=== PATIENT | male | born 1945 | race Caucasian/White ===

== ENCOUNTER 2017-10-13 12:20 | Emergency (ER) | payer OTHER ==
[2017-10-13] MEDS ORDERED: LIDOCAINE 1% W/EPI 1:100,000 MDV 50 ML VIAL ONE (12:54)
[2017-10-13] MEDS ORDERED: CEFAZOLIN SODIUM 1 GM/VIAL ONE (13:54)
--- NOTE | 2017-10-13 14:10 | EDPHYS ---
Physician Documentation [facility] Name: Griffin Mcghee Age: 72 yrs Sex: Male : 1945 Arrival Date: 10/13/2017 Time: 12:23 Bed 25 Private MD: Juan Benjamin E ED Physician Simone Jensen HPI: 10/13 12:40 This 72 yrs old Male presents to ER via Ambulatory with complaints of cp Puncture Wound To Arm. 12:40 The patient or guardian complains of penetrating injury, wooden thorn from palm tree. cp The complaints affect the left lateral proximal forearm. Context: The problem was sustained at home. Onset: The symptoms/episode began/occurred today. Treatment prior to arrival includes: attempt to remove. Associated signs and symptoms: Pertinent negatives: decreased range of motion, fever, numbness. Historical: - Allergies: 12:29 No Known Allergies; aj - Home Meds: 12:29 Warfarin Oral [Active]; Risperdal Oral [Active]; aj - PMHx: 12:29 CVA; Hypertension; aj - Immunization history:: Last tetanus immunization: unknown. - Social history:: Smoking status: Patient/guardian denies using tobacco. ROS: 12:45 Constitutional: Negative for body aches, chills, fever, poor PO intake. cp 12:45 Eyes: Negative for injury, pain, redness, and discharge. cp 12:45 ENT: Negative for drainage from ear(s), ear pain, sore throat, difficulty swallowing, difficulty handling secretions. 12:45 Cardiovascular: Negative for chest pain. 12:45 Respiratory: Negative for cough, shortness of breath. 12:45 Abdomen/GI: Negative for abdominal pain, vomiting, diarrhea, constipation. 12:45 Skin: Positive for puncture, of the lateral aspect left proximal forearm, foreign body sensation. 12:45 All other systems are negative. Exam: 12:52 Constitutional: The patient appears in no acute distress, alert, awake, non-toxic, well cp developed, well nourished. 12:52 Head/Face: Normocephalic, atraumatic. cp 12:52 Eyes: Periorbital structures: appear normal, Conjunctiva: normal, no exudate, no injection, Lids and lashes: appear normal, bilaterally. 12:52 ENT: External ear(s): are unremarkable, Nose: is normal, Mouth: is normal. 12:52 Chest/axilla: Inspection: normal. 12:52 Cardiovascular: Rate: tachycardic. 12:52 Respiratory: the patient does not display signs of respiratory distress, Respirations: normal, no use of accessory muscles, no retractions, no splinting, no tachypnea. 12:52 Abdomen/GI: Exam negative for discomfort, distension, guarding, Inspection: abdomen appears normal. 12:52 Skin: injury, puncture(s), that are deep, of the lateral aspect left proximal forearm, noted palpable foreign body . Vital Signs: 12:29 BP 156 / 94; Pulse 104; Resp 18; Temp 97.0; Pulse Ox 98% on R/A; Weight 83.91 kg; aj Height 6 ft. 1 in. (185.42 cm); 12:29 Body Mass Index 24.41 (83.91 kg, 185.42 cm) Procedures: 14:00 Foreign Body Removal: sliver of wood, from the left lateral proximal forearm, by using cp a hemostat, Dressinx4s were used to dress the wound, The patient tolerated the removal well, wound irrigated with normal saline and betadine. MDM: 12:33 Patient medically screened. cp 13:00 Differential diagnosis: cellulitis, abscess, retained foreign body. 14:05 Data reviewed: vital signs, nurses notes, and as a result, I will discharge patient. 14:05 Counseling: I had a detailed discussion with the patient and/or guardian regarding: the cp historical points, exam findings, and any diagnostic results supporting the discharge/admit diagnosis, to return to the emergency department if symptoms worsen or persist or if there are any questions or concerns that arise at home. Special discussion: I discussed in detail with the patient the higher chance of wound infection based on his presenting history. ED course: VSS. Patient reports tetanus vaccination UTD. Wound cleaned, irrigated and dressed after large wooden sliver removed. Will discharge to home for continued monitoring. 10/13 12:43 Order name: Dressing - Wound; Complete Time: 14:02 cp 10/13 12:43 Order name: Gloves, Sterile; Complete Time: 13:02 cp 10/13 12:43 Order name: Setup Suture Tray; Complete Time: 13:02 cp 10/13 13:44 Order name: Wound dressing; Complete Time: 14:02 cp Administered Medications: 13:13 Drug: Lidocaine-Epinephrine -1%: (1:100,000) 5 ml {Note: by AMANDA Hammond.} Volume: 20 aj1 ml; Route: Infiltration; 14:02 Drug: Ancef 1 grams Route: IM; Site: left gluteus; aj1 14:16 Follow up: Response: No adverse reaction aa5 Disposition: 10/13/17 14:09 Discharged to Home. Impression: Puncture wound with foreign body of left forearm. - Condition is Stable. - Discharge Instructions: Puncture Wound. - Prescriptions for Keflex 500 mg Oral Capsule - take 1 capsule by ORAL route every 6 hours for 10 days; 40 capsule. - Medication Reconciliation Form, Thank You Letter, Antibiotic Education, Prescription Opioid Use form. - Follow up: Private Physician; When: 48 Hours; Reason: Wound Recheck. - Problem is new. - Symptoms have improved. Addendum: 10/15/2017 13:59 Co-signature as Attending Physician, Simone Jensen MD. g s Signatures: Liset Van RN RN aj1 Gia Sierra RN RN aj Wendy Carmen RN RN aa5 Jacob Cano PA PA cp Starr, Gregory, MD MD gs Corrections: (The following items were deleted from the chart) 10/13 14:16 14:09 10/13/2017 14:09 Discharged to Home. Impression: Puncture wound with foreign body aa5 of left forearm. Condition is Stable. Forms are Medication Reconciliation Form, Thank You Letter, Antibiotic Education, Prescription Opioid Use. Follow up: Private Physician; When: 48 Hours; Reason: Wound Recheck. Problem is new. Symptoms have improved. cp
--- NOTE | 2017-10-13 14:10 | ER ---
Nurse's Notes [facility] Name: Griffin Mcghee Age: 72 yrs Sex: Male : 1945 Arrival Date: 10/13/2017 Time: 12:23 Bed 25 Private MD: Juan Benjamin E Diagnosis: Puncture wound with foreign body of left forearm Presentation: 10/13 12:28 Presenting complaint: Patient states: Punctured by palm tree thorn on left forearm aj today just [employer]. Patient reports that a piece of the thorn broke off in his arm and remains there. Transition of care: patient was not received from another setting of care. Onset of symptoms was October 13, 2017. Risk Assessment: Do you want to hurt yourself or someone else? Patient reports no desire to harm self or others. Care prior to arrival: None. 12:28 Method Of Arrival: Ambulatory aj 12:28 Acuity: VICTORINO 4 aj Triage Assessment: 12:29 General: Appears in no apparent distress. comfortable, Behavior is calm, cooperative, aj appropriate for age. Pain: Complains of pain in palmar aspect of left forearm. Neuro: Level of Consciousness is awake, alert, obeys commands, Oriented to person, place, time, situation, Appropriate for age. Respiratory: Airway is patent Respiratory effort is even, unlabored, Respiratory pattern is regular, symmetrical. Derm: Skin is intact, is healthy with good turgor, Skin is pink, warm \T\ dry. normal. Injury Description: Foreign body is located palmar aspect of left forearm. Historical: - Allergies: 12:29 No Known Allergies; aj - Home Meds: 12:29 Warfarin Oral [Active]; Risperdal Oral [Active]; aj - PMHx: 12:29 CVA; Hypertension; aj - Immunization history:: Last tetanus immunization: unknown. - Social history:: Smoking status: Patient/guardian denies using tobacco. Screenin:47 Abuse screen: Denies threats or abuse. Denies injuries from another. Nutritional aj1 screening: No deficits noted. Tuberculosis screening: No symptoms or risk factors identified. Assessment: 12:47 General: Appears in no apparent distress. comfortable, Behavior is calm, cooperative, aj1 appropriate for age. Pain: Denies pain. Neuro: Level of Consciousness is awake, alert, obeys commands, Oriented to person, place, time, situation, Speech is normal, Facial symmetry appears normal. Cardiovascular: Patient's skin is warm and dry. Respiratory: Airway is patent Respiratory effort is even, unlabored, Respiratory pattern is regular, symmetrical. GI: No signs and/or symptoms were reported involving the gastrointestinal system. : No signs and/or symptoms were reported regarding the genitourinary system. EENT: No signs and/or symptoms were reported regarding the EENT system. Derm: Skin is pink, warm \T\ dry. normal. Musculoskeletal: No signs and/or symptoms reported regarding the musculoskeletal system. Circulation, motion, and sensation intact. Injury Description: Foreign body is located palmar aspect of left forearm is a splinter. 14:16 Reassessment: Patient is alert, oriented x 3, equal unlabored respirations, skin aa5 warm/dry/pink. Vital Signs: 12:29 BP 156 / 94; Pulse 104; Resp 18; Temp 97.0; Pulse Ox 98% on R/A; Weight 83.91 kg; aj Height 6 ft. 1 in. (185.42 cm); 12:29 Body Mass Index 24.41 (83.91 kg, 185.42 cm) aj ED Course: 12:23 Patient arrived in ED. sb2 12:24 Juan Benjamin MD is Private Physician. sb2 12:29 Triage completed. aj 12:29 Arm band placed on right wrist. Patient placed in an exam room. aj 12:33 Jacob Cano PA is PHCP. cp 12:33 Simone Jensen MD is Attending Physician. cp 12:45 Liset Van, MIC is Primary Nurse. aj1 12:47 Patient has correct armband on for positive identification. Bed in low position. Call aj1 light in reach. Side rails up X 1. 12:47 No provider procedures requiring assistance completed. aj1 14:16 Patient did not have IV access during this emergency room visit. aa5 Administered Medications: 13:13 Drug: Lidocaine-Epinephrine -1%: (1:100,000) 5 ml {Note: by AMANDA Hammond.} Volume: 20 aj1 ml; Route: Infiltration; 14:02 Drug: Ancef 1 grams Route: IM; Site: left gluteus; aj1 14:16 Follow up: Response: No adverse reaction aa5 Outcome: 14:09 Discharge ordered by . cp 14:16 Patient left the ED. aa5 14:16 Discharged to home ambulatory. aa5 14:16 Condition: stable 14:16 Discharge instructions given to patient, Instructed on discharge instructions, follow up and referral plans. medication usage, Demonstrated understanding of instructions, follow-up care, medications, Prescriptions given X 1. Signatures: Liset Van RN RN aj1 Gia Sierra RN RN aj Wendy Carmen RN RN aa5 Jacob Cano, AMANDA PA Lennie Pope sb2
== END 2017-10-13 14:16 | disposition home or self-care (01) ==
LOC: ER 12:20
DX: S51.842A Puncture wound with foreign body of left forearm, initial encounter (principal); I10 Essential (primary) hypertension; W26.8XXA Contact with other sharp object(s), not elsewhere classified, initial encounter; W45.8XXA Other foreign body or object entering through skin, initial encounter; Y93.9 Activity, unspecified; Y92.009 Unspecified place in unspecified non-institutional (private) residence as the place of occurrence of the external cause; Z79.01 Long term (current) use of anticoagulants; Z86.73 Personal history of transient ischemic attack (TIA), and cerebral infarction without residual deficits
CPT/HCPCS: 96372; 99283; J0690

== ENCOUNTER 2018-12-20 13:53 | Emergency (ER) | payer OTHER ==
--- OUTSIDE RECORDS SUMMARY | 2018-12-20 13:56 | XMS REPORT | Continuity of Care Document ---
:1945 Author Organization [facility] Care Team Providers Name Role Phone [facility] Unavailable Unavailable Problems No Data Provided for This Section Medications No Data Provided for This Section Allergies, Adverse Reactions, Alerts Substance Category Reaction Severity Reaction Status Date Comments Source type Reported codeine drug Allergy Surgical allergy [facility]ty [facility] Immunizations No Data Provided for This Section Results No Data Provided for This Section Pathology Reports No Data Provided for This Section Diagnostic Reports No Data Provided for This Section Consultation Notes No Data Provided for This Section Discharge Summaries No Data Provided for This Section History and Physicals No Data Provided for This Section Vital Signs No Data Provided for This Section Encounters Location Location Encounter Encounter Reason Attending ADM DC Status Source Details Type Number For Provider Date Date Visit [facility] Outpatient [id number] Jeremy 06/15 06/15 Active Surgical [facility] /2016 [facility] Outpatient [id number] [facility] 07/01 Active Surgical [facility] Procedures Procedure Code Date Perfomer Comments Source Magnetic 13710 06/15/2016 Surgical resonance (eg, Specialty proton) imaging, [facility] of any joint [facility] lower extremity; without contrast material Assessment and Plan No Data Provided for This Section Plan of Care No Data Provided for This Section Social History No Data Provided for This Section Family History No Data Provided for This Section Advance Directives No Data Provided for This Section Functional Status No Data Provided for This Section
--- OUTSIDE RECORDS SUMMARY | 2018-12-20 13:56 | XMS REPORT | CCD ---
:1945 Author Organization [facility] Care Team Providers Name Role Phone Jeremy Hanson Consulting Provider [phone] Allergies, Adverse Reactions, Alerts Substance Reaction Status codeine Active
--- OUTSIDE RECORDS SUMMARY | 2018-12-20 13:56 | XMS REPORT | CCD ---
:1945 Author Organization [facility] Care Team Providers Name Role Phone Jeremy Hanson Consulting Provider [phone] Results Radiology Reports Exam Date Time Procedure Performing Provider Status 06/15/2016 15:27:17 MRI Knee w/o Contrast Right Fiorella Lozano; Auth ( Verified) [id number] Notes:(MRI Knee w/o Contrast Right [id number]) Reason For Exam: RT KNEE PAINFINAL REPORTEXAM DESCRIPTION: MRI Knee w/o Contrast Right CLINICAL HISTORY: 71 y/o M, RT KNEE PAIN COMPARISON: None TECHNIQUE: Multiplanar, multi sequence MRI of the right knee was performed without contrast. FINDINGS: There is no MR evidence of fracture or dislocation. 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 Moderate joint space narrowing is seen in the lateral patellofemoral compartment with mild lateral patellar tilt moderate edema seen in the superior, lateral aspect of Hoffa's fat pad. The tibial tubercle - trochlear groove distance is at the upper limits of normal measuring 1.8 cm. Mild osteophyte formation is seen in the medialtibiofemoral and patellofemoral compartments. There is a small to moderate knee joint effusion with mild synovitis. There is a moderate Doss's cyst. 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 There is grade 3/4 chondromalacia in the posterior weight-bearing medial femoral condyle measuring 1.3 x 2.1 cm.There is background grade 2 chondral thinning in the medial tibiofemoral compartment. The lateral tibiofemoral articular cartilage is intact. The ACL and PCL are intact. The medial collateral ligament and lateral collateral ligament complex are intact. There is marked free edge blunting of the posterior body of the medial meniscus with suspected superimposed radial tearing of the residual free edge (image 22, series 6). The lateral meniscus is intact. The extensor mechanism is intact. Mild edema seen along the medial patellar retinaculum without evidence of fiber disruption suggesting sprain. The medial patellofemoral ligament is not well visualizedon this examination. The visualized musculature about the knee is unremarkable. IMPRESSION: MR findings raise the question of patellar maltracking. There is grade 3/4 chondromalacia in the patellofemoral compartment, greatest laterally. Mild edema along the medial patellar retinaculum suggests subacute grade 1 sprain. 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 Marked free edge blunting of the posterior body of the medial meniscus with suspected superimposed radial tearing of the residual free edge. Small to moderate knee joint effusion with mild synovitis. Moderate Doss's cyst Electronically signed by: Jordon Nguyễn 06/16/2016 11:26 Final Dictated by: Jordon Nguyễn MD Dictated DT/TM: 06/16/2016 11:26 am Signed by: Jordon Nguyễn MD Signed (Electronic Signature): 06/16/2016 11:26 am Transcribed by: DARIA Procedures Procedures Date Related Diagnosis Magnetic resonance (eg, proton) imaging, any 06/15/2016 00:00:00 joint of lower extremity; without contrast material
--- NOTE | 2018-12-20 15:01 | EDPHYS ---
Physician Documentation [facility] Name: Griffin Mcghee Age: 73 yrs Sex: Male : 1945 Arrival Date: 12/20/2018 Time: 13:57 Bed 15 Private MD: Juan Benjamin E ED Physician Oracio Mejias HPI: 12/20 17:41 This 73 yrs old Male presents to ER via Ambulatory with complaints of bulging kdr vein. 17:41 The patient noted apparent distended neck veins that collapse when he takes a deep kdr breath. He has not noted this before and had no other associated s/s. Onset: The symptoms/episode began/occurred at an unknown time. Severity of symptoms: At their worst the symptoms were very mild in the emergency department the symptoms are unchanged. The patient has not experienced similar symptoms in the past. The patient has not recently seen a physician. Historical: - Allergies: 14:07 No Known Allergies; ph - PMHx: 14:07 CVA; Hypertension; ph - Immunization history:: Adult Immunizations up to date. - Social history:: Smoking status: Patient/guardian denies using tobacco. - Ebola Screening: : No symptoms or risks identified at this time. ROS: 17:41 Constitutional: Negative for fever, chills, and weight loss, Eyes: Negative for injury, kdr pain, redness, and discharge, ENT: Negative for injury, pain, and discharge, Cardiovascular: Negative for chest pain, palpitations, and edema, Respiratory: Negative for shortness of breath, cough, wheezing, and pleuritic chest pain, Abdomen/GI: Negative for abdominal pain, nausea, vomiting, diarrhea, and constipation, Back: Negative for injury and pain, : Negative for injury, bleeding, discharge, and swelling, MS/Extremity: Negative for injury and deformity, Skin: Negative for injury, rash, and discoloration, Neuro: Negative for headache, weakness, numbness, tingling, and seizure activity. Psych: Negative for depression, anxiety, suicide ideation, homicidal ideation, and hallucinations, Allergy/Immunology: Negative for hives, rash, and allergies, Endocrine: Negative for neck swelling, polydipsia, polyuria, polyphagia, and marked weight changes, Hematologic/Lymphatic: Negative for swollen nodes, abnormal bleeding, and unusual bruising. 17:41 Neck: Positive for Apparent bulging of neck veins. Exam: 17:41 Constitutional: This is a well developed, well nourished patient who is awake, alert, kdr and in no acute distress. Head/Face: Normocephalic, atraumatic. Eyes: Pupils equal round and reactive to light, extra-ocular motions intact. Lids and lashes normal. Conjunctiva and sclera are non-icteric and not injected. Cornea within normal limits. Periorbital areas with no swelling, redness, or edema. Chest/axilla: Normal chest wall appearance and motion. Nontender with no deformity. No lesions are appreciated. Cardiovascular: Regular rate and rhythm with a normal S1 and S2. No gallops, murmurs, or rubs. Normal PMI, no JVD. No pulse deficits. Respiratory: Lungs have equal breath sounds bilaterally, clear to auscultation and percussion. No rales, rhonchi or wheezes noted. No increased work of breathing, no retractions or nasal flaring. Abdomen/GI: Soft, non-tender, with normal bowel sounds. No distension or tympany. No guarding or rebound. No evidence of tenderness throughout. 17:41 Neck: External neck: is normal, no abrasions, no abscess, no cellulitis, no ecchymosis, no erythema, no laceration, no mass, no rash, no swelling. Vital Signs: 14:06 BP 149 / 103; Pulse 87; Resp 18; Temp 98.0; Pulse Ox 99% on R/A; Weight 83.91 kg; ph Height 6 ft. 1 in. (185.42 cm); 14:06 Body Mass Index 24.41 (83.91 kg, 185.42 cm) ph MDM: 15:00 Patient medically screened. kdr 17:41 Data reviewed: vital signs, nurses notes. Counseling: I had a detailed discussion with kdr the patient and/or guardian regarding: the historical points, exam findings, and any diagnostic results supporting the discharge/admit diagnosis, the need for outpatient follow up. Administered Medications: No medications were administered Disposition: 12/20/18 15:00 Discharged to Home. Impression: Buldging Neck Veins. - Condition is Stable. - Blank Diagnosis Outline, Medication Reconciliation Form, Thank You Letter form. - Follow up: Juan Benjamin MD; When: 2 - 3 days; Reason: If symptoms return, Further diagnostic work-up, Recheck today's complaints, Continuance of care, Re-evaluation by your physician. - Problem is new. - Symptoms are resolved. Signatures: Gia Sierra RN RN Oracio Reynaga MD MD [facility] Liya Lobo RN RN ph Corrections: (The following items were deleted from the chart) 15:05 15:00 12/20/2018 15:00 Discharged to Home. Impression: Buldging Neck Veins. Condition aj is Stable. Forms are Medication Reconciliation Form, Thank You Letter, Antibiotic Education, Prescription Opioid Use. Follow up: Juan Benjamin; When: 2 - 3 days; Reason: If symptoms return, Further diagnostic work-up, Recheck today's complaints, Continuance of care, Re-evaluation by your physician. Problem is new. Symptoms are resolved. kdr
--- NOTE | 2018-12-20 15:01 | ER ---
Nurse's Notes [facility] Name: Griffin Mcghee Age: 73 yrs Sex: Male : 1945 Arrival Date: 12/20/2018 Time: 13:57 Bed 15 Private MD: Juan Benjamin E Diagnosis: Buldging Neck Veins Presentation: 12/20 14:05 Presenting complaint: Patient states: Noticed LEJ bulging 2 days ago, tried to go to PCP but could not be seen today, denies any other symptoms. Transition of care: patient was not received from another setting of care. Onset of symptoms was December 20, 2018. Risk Assessment: Do you want to hurt yourself or someone else? Patient reports no desire to harm self or others. Initial Sepsis Screen: Does the patient meet any 2 criteria? No. Patient's initial sepsis screen is negative. Does the patient have a suspected source of infection? No. Patient's initial sepsis screen is negative. Care prior to arrival: None. 14:05 Method Of Arrival: Ambulatory 14:05 Acuity: VICTORINO 3 Historical: - Allergies: 14:07 No Known Allergies; ph - PMHx: 14:07 CVA; Hypertension; ph - Immunization history:: Adult Immunizations up to date. - Social history:: Smoking status: Patient/guardian denies using tobacco. - Ebola Screening: : No symptoms or risks identified at this time. Screenin:42 Abuse screen: Denies threats or abuse. Denies injuries from another. Nutritional aj screening: No deficits noted. Tuberculosis screening: No symptoms or risk factors identified. Fall Risk None identified. Assessment: 14:42 General: Appears in no apparent distress. comfortable, Behavior is calm, cooperative, aj appropriate for age. Pain: Denies pain. Neuro: Level of Consciousness is awake, alert, obeys commands, Oriented to person, place, time, situation, Appropriate for age. Cardiovascular: Capillary refill < 3 seconds in bilateral fingers JVD is present on left Patient's skin is warm and dry. Respiratory: Airway is patent Respiratory effort is even, unlabored, Respiratory pattern is regular, symmetrical. Derm: Skin is intact, is healthy with good turgor, Skin is pink, warm \T\ dry. normal. Vital Signs: 14:06 BP 149 / 103; Pulse 87; Resp 18; Temp 98.0; Pulse Ox 99% on R/A; Weight 83.91 kg; ph Height 6 ft. 1 in. (185.42 cm); 14:06 Body Mass Index 24.41 (83.91 kg, 185.42 cm) ph ED Course: 13:57 Patient arrived in ED. mr 13:57 Juan Benjamin MD is Private Physician. mr 14:06 Triage completed. ph 14:07 Arm band placed on Patient placed in an exam room. ph 14:13 Gia Sierra RN is Primary Nurse. aj 14:24 Oracio Mejias MD is Attending Physician. kdr 14:42 Patient has correct armband on for positive identification. aj 14:59 Juan Benjamin MD is Referral Physician. kdr 15:04 No provider procedures requiring assistance completed. Patient did not have IV access aj during this emergency room visit. Administered Medications: No medications were administered Outcome: 15:00 Discharge ordered by . kdr 15:04 Discharged to home ambulatory. aj 15:04 Condition: good 15:04 Discharge instructions given to patient, Instructed on discharge instructions, follow up and referral plans. Demonstrated understanding of instructions, follow-up care. 15:05 Patient left the ED. aj Signatures: Gia Sierra, RN RN Oracio Reynaga MD MD [facility] Hayley Yi Liya Lobo RN RN
== END 2018-12-20 15:05 | disposition home or self-care (01) ==
LOC: ER 13:53
DX: I87.8 Other specified disorders of veins (principal); I10 Essential (primary) hypertension; Z86.73 Personal history of transient ischemic attack (TIA), and cerebral infarction without residual deficits
CPT/HCPCS: 99281

== ENCOUNTER 2025-02-27 22:35 | Inpatient (IN) | payer OTHER ==
[2025-02-27 22:57] LABS: Absolute Lymphocytes (CBC) 1.6 K/uL (0.7-4.9); Hematocrit 43.6 % (39.6-49.0); Hemoglobin 14.9 g/dL (13.6-17.9); MCH 30.6 pg (27.0-35.0); MCHC 34.3 g/dL (32.0-36.0); MCV 89.2 fL (80-100); MPV 7.7 fL (7.6-11.3); Nucleated RBC Absolute Count 0.0 (0-0); Nucleated Red Blood Cells % 0.1 % (0-0); RBC Red Blood Cell Count 4.88 M/uL (4.33-5.43); White Blood Count 6.40 thou/uL (4.3-10.9)
[2025-02-27 23:16] LABS: Anion Gap 7.1 mEq/L (5.0-15.0); BUN Blood Urea Nitrogen 22.0 mg/dL (7-18); Glucose Level 126.0 mg/dL (74-106); Magnesium 2.1 mg/dL (1.6-2.4); NT PRO-BNP 2794.0 pg/mL (<450); Potassium 4.1 mEq/L (3.5-5.1); Troponin High Sensitivity 19.9 pg/mL (<58.9)
[2025-02-27] MEDS ORDERED: LABETALOL 20 MG/4ML SYRINGE IV ONE (23:45)
--- NOTE | 2025-02-28 01:24 | EDPHYS ---
Physician Documentation [facility] Name: Griffin Mcghee Age: 79 yrs Sex: Male : 1945 Arrival Date: 02/27/2025 Time: 22:35 Bed 14 Private MD: ED Physician Canelo Hummel HPI: 02/28 01:53 This 79 yrs old Male presents to ER via Ambulatory with complaints of Chest Tightness, tt7 High Blood Pressure. 01:53 Patient reports that he was walking around at [facility] when he started to tt7 feel tightness in his chest, this started about an hour prior to arrival, he also felt somewhat lightheaded. He states he had similar symptoms but with associated dyspnea about 2 weeks ago and was seen in our facility and admitted to the hospital, was evaluated by accounts payable or receivable clerk Dr. Pardo and had echocardiogram performed, prior to arrival patient took 2 metoprolol's that he had at home but he states that they are about 10 years old. Past medical history of hypertension and CVA. Historical: - Allergies: 03:13 No Known Allergies; tb4 - PMHx: 02/27 22:46 CVA; Hypertension; kd3 - Immunization history:: Adult Immunizations up to date. - Infectious Disease History:: Denies. - Social history:: Smoking status: Patient denies any tobacco usage or history of. ROS: 02/28 01:54 Constitutional: negative for fever. Respiratory: negative for shortness of breath. tt7 Abdomen/GI: negative for abdominal pain, nausea, vomiting, diarrhea. MS/Extremity: negative for injury and deformity. Skin: negative for rash. Neuro: negative for focal weakness. Cardiovascular: Positive for chest pain, palpitations, Exam: 01:55 Constitutional: vital signs reviewed, well appearing. Head/Face: normocephalic, tt7 atraumatic. Eyes: no conjunctival injection, anicteric sclerae. ENT: mucus membranes moist. Neck: trachea midline, no JVD, no meningismus. Chest/axilla: normal chest wall appearance and motion, nontender, no crepitus. Cardiovascular: Irregularly irregular rhythm, tachycardia, no murmurs, no rubs, no lower extremity edema. Respiratory: normal respiratory effort, no accessory muscle use, lungs CTAB. Abdomen/GI: soft, nondistended, nontender, no guarding or rebound, negative Chavarria's sign, no McBurney point tenderness. Back: normal ROM. Skin: warm, dry, intact, normal turgor, normal color, no rash. MS/ Extremity: normal ROM of extremities, no gross deformities. Neuro: alert and oriented with appropriate mental status, normal speech, follows commands, no focal neurologic deficits. Psych: appropriate mood and affect. Vital Signs: 02/27 22:42 BP 173 / 129; Pulse 128; Resp 18; Temp 97.5(TE); Pulse Ox 99% on R/A; Weight 81.65 kg; kd3 Height 6 ft. 0 in. ; Pain 2/10; 23:00 BP 155 / 114; Pulse 120; Resp 17; Pulse Ox 97% on R/A; Weight 81.65 kg; Height 6 ft. 0 tb4 in. ; Pain 2/10; 23:40 BP 157 / 119; Pulse 106; Resp 20; Pulse Ox 97% on R/A; tb4 02/28 00:09 BP 136 / 98; Pulse 96; Resp 17; Pulse Ox 99% on R/A; tb4 00:30 BP 150 / 98; Pulse 88; Resp 20; Pulse Ox 98% on R/A; tb4 01:00 BP 153 / 97; Pulse 89; Resp 20; Pulse Ox 98% on R/A; tb4 02:00 BP 139 / 99; Pulse 84; Resp 19; Pulse Ox 98% on R/A; tb4 03:00 BP 146 / 94; Pulse 88; Resp 17; Pulse Ox 100% on R/A; Pain 0/10; tb4 02/27 23:00 Body Mass Index 24.41 (81.65 kg, 182.88 cm) tb4 02/27 22:42 Pain Scale: Adult kd3 23:00 Pain Scale: Adult tb4 03:00 Pain Scale: Adult tb4 MDM: 02/27 22:42 Medical Screening Exam initiated tt7 02/28 01:48 Differential diagnosis: abnormal EKG, acute myocardial infarction, anxiety, chest wall tt7 pain, gastritis, gastroesophageal reflux disease (GERD), pancreatitis, pneumonia, pneumothorax, pulmonary embolus. Data reviewed: vital signs, nurses notes, old medical records, lab test result(s), EKG, radiologic studies. ED course: Patient came in significantly hypertensive reporting chest tightness, he was in atrial fibrillation with rapid ventricular response with a rate of 125 bpm, he was given 10 mg of IV labetalol to treat his hypertension and to attempt rate control, did not suspect that his tachycardia was a compensatory mechanism of unspecified shock, standard cardiac evaluation ordered, I reviewed patient's recent emergency department visit at our facility about 2 weeks ago, I have considered pulmonary embolism within the differential and ordered a D-dimer, this was slightly elevated but given that patient had recent CT angiogram done 2 weeks ago to rule out pulmonary embolism do not feel this is necessary to repeat this, I independently interpreted the patient's EKG performed on 02/27/2025 at 2240. On my interpretation, EKG demonstrates atrial fibrillation with rapid ventricular response, ventricular rate 118 bpm, left anterior fascicular block, QRS duration 122 ms, T wave inversions in lead I, aVL, V2, no STEMI, cardiac monitoring was ordered due to the potential for conduction abnormality causing dysrythmia. I independently interpreted the patient's cardiac rhythm as atrial fibrillation with rapid ventricular response at a rate of 114 bpm on the color television console monitor. While in the emergency department patient had brief episode of bradycardia with heart rate of 38, unclear cause and this quickly resolved and patient was asymptomatic, this warrants observation in the hospital for telemetry. I spoke with hospitalist Dr. Spears who accepts the patient for telemetry observation in the hospital. 02/27 22:43 Order name: Basic Metabolic Panel; Complete Time: 23:18 tt7 02/27 22:43 Order name: CBC with Diff; Complete Time: 23:18 tt7 02/27 22:43 Order name: D-Dimer; Complete Time: 23:18 tt7 02/27 22:43 Order name: Magnesium; Complete Time: 23:18 tt7 02/27 22:43 Order name: NT PRO-BNP; Complete Time: 23:18 tt7 02/27 22:43 Order name: Troponin HS; Complete Time: 23:18 tt7 02/28 01:47 Order name: CBC with Automated Diff EDMS 02/28 01:47 Order name: CBC with Automated Diff EDMS 02/28 01:47 Order name: Comprehensive Metabolic Panel EDMS 02/28 01:47 Order name: Comprehensive Metabolic Panel EDMS 02/28 01:47 Order name: Troponin High Sensitivity EDMS 02/28 01:48 Order name: Troponin High Sensitivity EDMS 02/28 01:48 Order name: Troponin High Sensitivity EDMS 02/28 01:48 Order name: Troponin High Sensitivity EDMS 02/27 22:43 Order name: XRAY Chest (1 view) tt7 02/27 22:43 Order name: EKG; Complete Time: 22:43 tt7 02/27 22:43 Order name: Cardiac monitoring; Complete Time: 23:04 tt7 02/27 22:43 Order name: EKG - Nurse/Tech; Complete Time: 22:48 tt7 02/27 22:43 Order name: IV Saline Lock; Complete Time: 22:48 tt7 02/27 22:43 Order name: Labs collected and sent; Complete Time: 22:48 tt7 02/27 22:43 Order name: O2 Per Protocol; Complete Time: 23:04 tt7 02/27 22:43 Order name: O2 Sat Monitoring; Complete Time: 23:04 tt7 Administered Medications: 02/27 23:53 Drug: Labetalol IV 10 mg IV at bolus once Route: IV; Rate: bolus; Site: right tb4 antecubital; 02/28 02:10 Follow up: Response: No adverse reaction; Blood pressure is lowered; IV Status: tb4 Completed infusion Disposition: 01:56 Co-signature as Attending Physician, Canelo Hummel DO. tt7 Disposition Summary: 02/28/25 01:23 Hospitalization Ordered Notes: Hospitalization Status: Observation tt7 Provider: Keny Spears ttKerwin Location: Telemetry/MedSurg (observation) tt7 Condition: Fair tt7 Problem: new tt7 Symptoms: are resolved tt7 Bed/Room Type: Standard tt7 Room Assignment: 210(02/28/25 01:51) rv1 Diagnosis - Unspecified atrial fibrillation tt7 - Bradycardia, unspecified tt7 - Chest pain, unspecified tt7 - Hypertensive urgency tt7 Forms: - Medication Reconciliation Form tt7 - SBAR form tt7 - Leadership Thank You Letter tt7 Signatures: Dispatcher SaqibHo Paulina Lawson RN RN kd3 Drea Smith rv1 Sravanthi Miles RN RN tb4 Canelo Hummel DO DO tt7 Corrections: (The following items were deleted from the chart) 02/27 22:43 22:43 BASIC METABOLIC PANEL+C.LAB.BRZ ordered. EDMS EDMS 22:43 22:43 CBC+H.LAB.BRZ ordered. EDMS EDMS 22:43 22:43 D-DIMER+COAG.LAB.BRZ ordered. EDMS EDMS 22:43 22:43 MAGNESIUM+C.LAB.BRZ ordered. EDMS EDMS 22:43 22:43 PROBNP+C.LAB.BRZ ordered. EDMS EDMS : 22:43 Troponin High Sensitivity+C.LAB.BRZ ordered. EDMS EDMS 02/28 01:51 01:23 tt7 rv1 03:14 02/27 22:48 Allergies: No Known Allergies; tb4 tb4
--- NOTE | 2025-02-28 01:24 | ER ---
Nurse's Notes [facility] Name: Griffin Mcghee Age: 79 yrs Sex: Male : 1945 Arrival Date: 02/27/2025 Time: 22:35 Bed 14 Private MD: Diagnosis: Unspecified atrial fibrillation;Bradycardia, unspecified;Chest pain, unspecified;Hypertensive urgency Presentation: 02/27 22:42 Chief complaint: Patient states: I am having some chest tightness and discomfort. I was kd3 here not too long ago for the same thing. I have never had a heart attach but i have had a TIA 10 years ago. I keep metoprolol in my wallet because i was told that if i every thought i was having a heart attack to take them, so i took two tablets, they're about 10 years old. At home, i had really high blood pressure reading so i decided not to wait and to come in. Coronavirus screen: Vaccine status: Patient reports receiving the 2nd dose of the covid vaccine. Ebola Screen: No symptoms or risks identified at this time. Initial Sepsis Screen: Does the patient meet any 2 criteria? No. Patient's initial sepsis screen is negative. Does the patient have a suspected source of infection? No. Patient's initial sepsis screen is negative. Risk Assessment: Do you want to hurt yourself or someone else? Patient reports no desire to harm self or others. Onset of symptoms was February 27, 2025. 22:42 Method Of Arrival: Ambulatory kd3 22:42 Acuity: VICTORINO 3 kd3 Triage Assessment: 22:46 General: Appears in no apparent distress. Behavior is calm, cooperative. Pain: kd3 Complains of pain in xiphoid area and mid-sternal area. Cardiovascular: Capillary refill < 3 seconds Patient's skin is warm and dry. Historical: - Allergies: 02/28 03:13 No Known Allergies; tb4 - PMHx: 02/27 22:46 CVA; Hypertension; kd3 - Immunization history:: Adult Immunizations up to date. - Infectious Disease History:: Denies. - Social history:: Smoking status: Patient denies any tobacco usage or history of. Screenin:00 [facility] ED Fall Risk Assessment (Adult) History of falling in the last 3 months, tb4 including since admission No falls in past 3 months (0 pts) Confusion or Disorientation No (0 pts) Intoxicated or Sedated No (0 pts) Impaired Gait No (0 pts) Mobility Assist Device Used No (0 pt) Altered Elimination No (0 pt) Score/Fall Risk Level 0 - 2 = Low Risk Oriented to surroundings, Maintained a safe environment. Abuse screen: Denies threats or abuse. Denies injuries from another. Nutritional screening: No deficits noted. Tuberculosis screening: No symptoms or risk factors identified. Assessment: 23:00 Reassessment: See triage note. General: Appears uncomfortable, Behavior is calm, tb4 cooperative. Pain: Complains of pain in chest Pain does not radiate. Pain currently is 2 out of 10 on a pain scale. Quality of pain is described as pressure, Pain began suddenly, Is continuous. Neuro: Level of Consciousness is awake, alert, obeys commands, Oriented to person, place, time, situation, [employer] are equal bilaterally Moves all extremities. Full function Gait is steady, Speech is normal, Facial symmetry appears normal. Cardiovascular: Patient's skin is warm and dry. Respiratory: Airway is patent Respiratory effort is even, unlabored, Respiratory pattern is regular, symmetrical. GI: No deficits noted. No signs and/or symptoms were reported involving the gastrointestinal system. Bowel sounds present X 4 quads. : No signs and/or symptoms were reported regarding the genitourinary system. Vital Signs: 22:42 BP 173 / 129; Pulse 128; Resp 18; Temp 97.5(TE); Pulse Ox 99% on R/A; Weight 81.65 kg; kd3 Height 6 ft. 0 in. ; Pain 06/24; 23:00 BP 155 / 114; Pulse 120; Resp 17; Pulse Ox 97% on R/A; Weight 81.65 kg; Height 6 ft. 0 tb4 in. ; Pain 2/; 23:40 BP 157 / 119; Pulse 106; Resp 20; Pulse Ox 97% on R/A; tb4 02/28 00:09 BP 136 / 98; Pulse 96; Resp 17; Pulse Ox 99% on R/A; tb4 00:30 BP 150 / 98; Pulse 88; Resp 20; Pulse Ox 98% on R/A; tb4 01:00 BP 153 / 97; Pulse 89; Resp 20; Pulse Ox 98% on R/A; tb4 02:00 BP 139 / 99; Pulse 84; Resp 19; Pulse Ox 98% on R/A; tb4 03:00 BP 146 / 94; Pulse 88; Resp 17; Pulse Ox 100% on R/A; Pain 0/10; tb4 02/27 23:00 Body Mass Index 24.41 (81.65 kg, 182.88 cm) tb4 02/27 22:42 Pain Scale: Adult kd3 23:00 Pain Scale: Adult tb4 03:00 Pain Scale: Adult tb4 ED Course: 02/27 22:35 Patient arrived in ED. im 22:42 Canelo Hummel DO is Attending Physician. tt7 22:46 Triage completed. kd3 22:46 Arm band placed on right wrist. EKG completed in triage. Results shown to MD. kd3 22:46 No provider procedures requiring assistance completed. Initial lab(s) drawn, by me, kd3 sent to lab. EKG done, by ED staff, reviewed by Canelo Hummel DO. Inserted saline lock: 20 gauge in right antecubital area, using aseptic technique. Blood collected. Flushed with 10 mL NS. Patient maintains SpO2 saturation greater than 95% on room air. 22:48 Basic Metabolic Panel Sent. kd3 22:48 CBC with Diff Sent. kd3 22:48 D-Dimer Sent. kd3 22:48 Magnesium Sent. kd3 22:48 NT PRO-BNP Sent. kd3 23:00 Patient has correct armband on for positive identification. Placed in gown. Call light tb4 in reach. Adult w/ patient. Client placed on continuous cardiac and pulse oximetry monitoring. NIBP monitoring applied. telemetry monitor on. Pulse ox on. Door closed. Lights dimmed. Warm blanket given. 23:01 XRAY Chest (1 view) In Process Unspecified. EDMS 02/28 01:22 Keny Spears MD is Hospitalizing Provider. tt7 Administered Medications: 02/27 23:53 Drug: Labetalol IV 10 mg IV at bolus once Route: IV; Rate: bolus; Site: right tb4 antecubital; 02/28 02:10 Follow up: Response: No adverse reaction; Blood pressure is lowered; IV Status: tb4 Completed infusion Medication: 02/27 23:00 VIS not applicable for this client. tb4 Outcome: 02/28 01:23 Decision to Hospitalize by Provider. tt7 03:14 Patient left the ED. tb4 Signatures: Dispatcher [employer] Paulina Lawson RN RN kd3 Mai Mosley Terri, RN RN tb4 Canelo Hummel DO DO tt7 Corrections: (The following items were deleted from the chart) 03:14 10 22:48 Allergies: No Known Allergies; tb4 tb4
[2025-02-28] MEDS ORDERED: ACETAMINOPHEN 325 MG TABLET PO PRN (01:43)
[2025-02-28] MEDS ORDERED: ONDANSETRON 4 MG/2 ML VIAL IV PRN (01:43)
--- NOTE | 2025-02-28 01:43 | P.HP ---
Certification for Inpatient Patient admitted to: Inpatient With expected LOS: >2 Midnights Practitioner: I am a practitioner with admitting privileges, knowledge of patient current condition, hospital course, and medical plan of care. Services: Services provided to patient in accordance with Admission requirements found in Title 42 Section 412.3 of the Code of Federal Regulations Patient History Date of Service: 02/28/25 Reason for admission: Bradycardia, Afib, CP History of Present Illness: 79 year old male with past medical history of CVA; Hypertension, Afib on chronic coumadin presents to the ED with palpitation and generalized weakness that has worsened over the past one week. He reports having a CVA 10 years ago and being diagnosed with Afib a few years later. Patient came to ER with some chest discomfort and tightness. He also noticed that his blood pressure has been high and was brought himself to the ER. He took 2 metoprolol tablet which he had 10 years ago. Patient was assessed in the ER and was initially noticed to have A-fib with RVR but during the hospital ER stay patient was noticed to have bradycardia and was admitted for further management Allergies No Known Allergies Allergy (Unverified 10/13/17 14:20) Home medications list reviewed: Yes Home Medications: Warfarin Sodium 5 mg PO DAILY 01/16/25 bisoproloL fumarate [Zebeta*] 5 mg PO DAILY 01/17/25 - Past Medical/Surgical History Past Medical History: Reviewed- Non-Contributory -: Afib -: CVA -: HTN Past Surgical History: Reviewed- Non-Contributory -: dental work - Social History Smoking Status: Never smoker Alcohol use: No CD- Drugs: No Caffeine use: No Review of Systems 10-point ROS is otherwise unremarkable Physical Examination - Vital Signs Temperature: 97.2 F Blood Pressure: 138/76 Pulse: 92 Respirations: 18 Pulse Ox (%): 94 - Physical Exam General: Alert, In no apparent distress, Mild distress HEENT: Atraumatic, Normocephalic Neck: Supple Respiratory: Clear to auscultation bilaterally, Normal air movement Cardiovascular: Regular rate/rhythm, Normal S1 S2 Capillary refill: <2 Seconds Gastrointestinal: Soft and benign, W/out hepatosplenomegaly Musculoskeletal: No clubbing Integumentary: No rashes Neurological: Other (Alert awake nonfocal) Lymphatics: No axilla or inguinal lymphadenopathy - Studies Laboratory Data (last 24 hrs) 10/16/25 10/16/25 22:48 22:48 WBC 6.40 Hgb 14.9 Hct 43.6 Plt Count 304 Sodium 138 Potassium 4.1 BUN 22 H Creatinine 1.04 Glucose 126 H Magnesium 2.1 Assessment and Plan - Plan Chest pain rule out ACS NSTEMI Will trend cardiac enzymes Will monitor telemetry Started on aspirin and statin EKG did not show any acute changes suggestive of ischemia Patient denies any chest pain at the time of interview Cardiology consult Will start on Heparin drip A-fib with RVR Rate controlled now Patient had an episode of bradycardia Will hold beta-bernice for now Awaiting further recommendations from cardiology Will hold Coumadin Hypertension Antihypertensives titrated Continue home medications and titrate as needed Hyperlipidemia Continue statin History of CVA Supportive management Monitor closely on telemetry GI/DVT prophylaxis Advanced directive full code Discharge Plan: Home Plan to discharge in: 48 Hours - Advance Directives Does patient have a Living Will: No Does patient have a Durable POA for Healthcare: No - Code Status/Comfort Care Code Status: Full Code Time Spent Managing Pts Care (In Minutes): 48
[2025-02-28 04:52] LABS: PT Prothrombin Time 17.7 SECONDS (10-13.0); PTT, Activated Partial Thromb 36.9 SECONDS (27.2-37.4); Protime INR 1.59
[2025-02-28] MEDS ORDERED: HEPARIN/D5W 25,000 UNIT/500 ML BAG IV PRN (06:02)
[2025-02-28] MEDS: ASPIRIN 81 MG CHEWABLE TABLET PO SCH ×2 (08:11→09:00)
[2025-02-28 08:24] LABS: PT Prothrombin Time 17.1 SECONDS (10-13.0); PTT, Activated Partial Thromb 32.8 SECONDS (27.2-37.4); Protime INR 1.53
[2025-02-28] MEDS: NITROGLYCERIN 1 GM PKT TD ONE (08:46)
[2025-02-28] MEDS: METOPROLOL TARTRATE 5 MG/5 ML INJ IV SCH (09:00)
[2025-02-28 10:33] LABS: Absolute Lymphocytes (CBC) 0.9 K/uL (0.7-4.9); Hematocrit 44.2 % (39.6-49.0); Hemoglobin 14.9 g/dL (13.6-17.9); MCH 30.3 pg (27.0-35.0); MCHC 33.6 g/dL (32.0-36.0); MCV 90.1 fL (80-100); MPV 7.9 fL (7.6-11.3); Nucleated RBC Absolute Count 0.0 (0-0); Nucleated Red Blood Cells % 0.1 % (0-0); RBC Red Blood Cell Count 4.90 M/uL (4.33-5.43); White Blood Count 5.00 thou/uL (4.3-10.9)
[2025-02-28 10:49] LABS: ALT/SGPT 24.0 U/L (16-61); Albumin 3.6 g/dL (3.4-5.0); Albumin/Globulin Ratio 1.0 (1.1-1.8); Alkaline Phosphatase 56.0 U/L (45-117); Anion Gap 7.9 mEq/L (5.0-15.0); BUN Blood Urea Nitrogen 19.0 mg/dL (7-18); Globulin 3.6 g/dL (2.3-3.5); Glucose Level 112.0 mg/dL (74-106)
[2025-02-28 10:51] LABS: AST/SGOT 30.0 U/L (15-37); Potassium 3.9 mEq/L (3.5-5.1)
[2025-02-28] MEDS ORDERED: HEPARIN 10,000 UNIT/10 ML VIAL IV ONE (11:29)
[2025-02-28] MEDS ORDERED: LIDOCAINE 1% 20 ML MDV ONE (11:29)
[2025-02-28] MEDS ORDERED: HEPA 1000U/500MLS 2,000 UNIT/1,000 ML BAG IV ONE (11:29)
[2025-02-28] MEDS ORDERED: ATROPINE SULF 1 MG/10 ML SYR IV ONE (11:32)
[2025-02-28] MEDS ORDERED: HEPARIN 5000 UNIT/ML 1 ML VIAL ONE (11:32)
[2025-02-28] MEDS ORDERED: CLOPIDOGREL 75 MG TABLET ONE (11:32)
--- NOTE | 2025-02-28 11:32 | P.CNS ---
Date of Consult: 02/28/25 Chief Complaint: Bradycardia, Afib, CP History of Present Illness: Patient with PMH of HTN, AF, presented with sudden oset chest pain yesterday after he was going for a walk, felt pressure across chest that lasted for few minutes, happened again later, he is chest pain free today, report having similar problem two weeks ago when he was admitted and ACS was ruled out, no other cardiac symptoms Allergies No Known Allergies Allergy (Unverified 10/13/17 14:20) Home medications list reviewed: Yes Home Medications: Warfarin Sodium 5 mg PO DAILY 01/16/25 bisoproloL fumarate [Zebeta*] 5 mg PO DAILY 01/17/25 - Past Medical/Surgical History Diabetic: No -: Afib -: CVA -: HTN -: dental work -: left knee sx - Social History Smoking Status: Unknown if ever smoked Alcohol use: No CD- Drugs: No Caffeine use: No Place of Residence: Home Review of Systems 10-point ROS is otherwise unremarkable Physical Examination Temp Pulse Resp BP Pulse Ox 97.6 F 96 H 17 172/114 H 96 02/28/25 08:00 02/28/25 08:00 02/28/25 08:00 02/28/25 08:00 02/28/25 08:00 General: Alert, In no apparent distress HEENT: Atraumatic, PERRLA, Mucous membr. moist/pink, EOMI, Sclerae nonicteric Neck: Supple, 2+ carotid pulse no bruit, No LAD, Without JVD or thyroid abnormality Respiratory: Clear to auscultation bilaterally, Normal air movement Cardiovascular: Normal S1 S2, Irregular heart rate/rhythm Gastrointestinal: Normal bowel sounds, No tenderness Musculoskeletal: No tenderness Integumentary: No rashes Neurological: Normal gait, Normal speech, Normal tone, Normal affect Lymphatics: No axilla or inguinal lymphadenopathy Laboratory Data (last 24 hrs) 02/27/25 02/27/25 22:48 22:48 WBC 6.40 Hgb 14.9 Hct 43.6 Plt Count 304 Sodium 138 Potassium 4.1 BUN 22 H Creatinine 1.04 Glucose 126 H Magnesium 2.1 - Problems (1) NSTEMI (non-ST elevated myocardial infarction) Current Visit: Yes Status: Acute Plan: patient with elevated troponin NPO for coronary angiogram ASA 81 mg daily Lipitor 40 mg daily continue heparin drip for now (2) Atrial fibrillation Current Visit: No Status: Acute Plan: patient is on coumadin and he adjust his medication as he do not want his INR to be very high. continue heparin drip for now and continue Bisoprolol (3) HTN (hypertension) Current Visit: No Status: Acute Plan: continue Bisoprolol and continue to monitor
[2025-02-28] MEDS ORDERED: TICAGRELOR 90 MG TABLET PO ONE (11:33)
[2025-02-28] MEDS ORDERED: ASPIRIN 325 MG TAB ONE (11:33)
[2025-02-28] MEDS ORDERED: FENTANYL CITR 100 MCG/2 ML ONE (11:45)
[2025-02-28] MEDS ORDERED: MIDAZOLAM HCL 2 MG/2 ML INJ ONE (11:45)
[2025-02-28] MEDS ORDERED: Phenylephrine HCl 10 MG/ML 1 ML VIAL ONE (12:07)
--- NOTE | 2025-02-28 13:01 | RAD REPORT ---
EXAMINATION: ONE VIEW CHEST XR CLINICAL INDICATION: Male, 79 years old.,CHEST PAIN TECHNIQUE: Frontal chest projection is submitted. Examination is limited by patient positioning and t echnique. COMPARISON: 01/16/2025 FINDINGS: The lungs are well inflated and clear with stable basilar predominant reticular opacities, suggesting chronic fibrotic or obstructive process. No pneumothorax or sizable effusion. Stable cardiomegaly. Stable tortuosity of the thoracic aorta. Mediastinal contours are unremarkable. IMPRESSION: No acute intrathoracic abnormalities. Stable findings.
[2025-02-28] MEDS: HYDRALAZINE HCL 20 MG/ML VIAL ONE (15:32)
[2025-02-28 18:00] VITALS: O2SAT 98
[2025-02-28] MEDS: METOPROLOL TAR 50 MG TAB PO SCH (18:12)
[2025-02-28] MEDS: CLOPIDOGREL 75 MG TABLET PO ONE (21:00)
[2025-02-28] MEDS: TICAGRELOR 90 MG TABLET PO ONE (21:09)
[2025-02-28] MEDS: ATORVASTATIN 40 MG TAB PO SCH (21:09)
--- NOTE | 2025-02-28 23:04 | OP ---
Date of Procedure: 02/28/2025 Surgeon: Wilder Mckee Procedures Performed: 1. Selective coronary angiogram. 2. PCI of the distal RCA with Synergy 3.0 x 12 mm drug-eluting stent. Indication For Procedure: [id number] [place]. Complications: None. Estimated Blood Loss: Less than 50 cc. Access: Right radial, closed by TR band. Sedation Time: 30 minutes with 1 of Versed and 50 of fentanyl. Description Of Procedure: After risks, benefits, and alternatives were explained to the patient, the patient agreed to proceed with procedure and signed informed consent. The patient was brought back to the laboratory cureman, prepped and draped in sterile fashion. Time-out was performed. Sedation was admini stered. Next, right radial access was obtained using ultrasound-guided micropuncture technique. Tig er 4 catheter was advanced over a J-wire to the aortic root. Selective angiogram was done using the same catheter. That catheter was later exchanged for a JR4 guide to engage the RCA. Heparin was adm inistered. ACT was therapeutic. Runthrough wire was passed across the lesion, pre-dilated the dista l RCA lesion with an NC 2.25, followed by an NC 2.30 mm balloon. Next, Synergy 3.0 x 12 mm drug-elut ing stent was placed across the lesion, postdilated with an NC 3.25 mm balloon. Final angiogram show s SOUMYA-3 flow. Wire was removed. Catheter was removed over a J-wire. Sheath was removed. TR band was applied. Hemostasis was achieved and the patient was moved back to recovery in stable condition. Findings: 1. Left main, normal. 2. LAD, large artery with proximal mild luminal irregularities and proximal to mid diffuse 60% diseas e followed by another mid 20% to 30% disease, then mid to distal mild luminal irregularities. 3. Left circ, large, codominant with proximal mild luminal irregularities, mid 40% disease, then mild luminal irregularities, gives OM1 and OM2 with mild luminal irregularities. 4. RCA, codominant with the left circ, proximal to mid mild luminal irregularities. Diffuse 20% to 3 0% disease. Distally, there is 90% disease, status post PCI as above. Then RPDA, mild luminal irreg ularities. Assessment: 1. Significant distal RCA disease, status post PCI with Synergy 3.0 x 12 mm drug-eluting stent. 2. Moderate mid LAD disease, the patient will need outpatient cardiac cath to check for if that lesio n needs to be stented. Plan: 1. Aspirin 81 mg daily for life. 2. Brilinta 180 x1 was given in the laboratory cureman, give Brilinta 90 mg p.o. x1 tonight. Then, switch to P lavix 300 mg p.o. x1 followed by Plavix 75 mg daily after. 3. Continue Coumadin for goal INR of 2 to 3 for atrial fibrillation. 4. Continue aggressive medical treatment for CAD. 5. Outpatient followup for cardiac cath to evaluate the moderate LAD disease. DHAVAL/SUSHIL Voice ID: [id number] Report ID: [id number]
[2025-03-01 04:43] VITALS: BMI 24.4
[2025-03-01 06:19] LABS: Absolute Lymphocytes (CBC) 0.8 K/uL (0.7-4.9); Hematocrit 43.7 % (39.6-49.0); Hemoglobin 14.8 g/dL (13.6-17.9); MCH 30.3 pg (27.0-35.0); MCHC 34.0 g/dL (32.0-36.0); MCV 89.1 fL (80-100); MPV 8.1 fL (7.6-11.3); Nucleated RBC Absolute Count 0.0 (0-0); Nucleated Red Blood Cells % 0.1 % (0-0); RBC Red Blood Cell Count 4.90 M/uL (4.33-5.43); White Blood Count 5.80 thou/uL (4.3-10.9)
[2025-03-01 06:42] LABS: ALT/SGPT 21.0 U/L (16-61); AST/SGOT 20.0 U/L (15-37); Albumin 3.5 g/dL (3.4-5.0); Albumin/Globulin Ratio 1.2 (1.1-1.8); Alkaline Phosphatase 52.0 U/L (45-117); Anion Gap 9.5 mEq/L (5.0-15.0); BUN Blood Urea Nitrogen 14.0 mg/dL (7-18); Globulin 3.0 g/dL (2.3-3.5); Glucose Level 111.0 mg/dL (74-106); Potassium 3.5 mEq/L (3.5-5.1)
[2025-03-01] MEDS: CLOPIDOGREL 75 MG TABLET PO SCH (07:32)
[2025-03-01] MEDS: ASPIRIN 81 MG CHEWABLE TABLET PO SCH (07:32)
[2025-03-01] MEDS: POTASSIUM CL SA 10 MEQ TAB PO ONE (07:32)
[2025-03-01 12:52] VITALS: BP 132/88; TEMP 97.8
--- NOTE | 2025-03-14 00:25 | P.DS ---
Discharge Date: 03/01/25 Disposition: ROUTINE DISCHARGE Discharge Condition: GOOD Reason for Admission: Bradycardia, Afib, CP Brief History of Present Illness: 79 year old male with past medical history of CVA; Hypertension, Afib on chronic coumadin presents to the ED with palpitation and generalized weakness that has worsened over the past one week. He reports having a CVA 10 years ago and being diagnosed with Afib a few years later. Patient came to ER with some chest discomfort and tightness. He also noticed that his blood pressure has been high and was brought himself to the ER. He took 2 metoprolol tablet which he had 10 years ago. Patient was assessed in the ER and was initially noticed to have A-fib with RVR but during the hospital ER stay patient was noticed to have bradycardia and was admitted for further management Hospital Course: Patient has done well during hospital stay and patient is clinically doing well. Patient is stable for discharge with outpatient follow-up. Vital Signs/Physical Exam: Temp Pulse Resp BP Pulse Ox 97.8 F 103 H 16 132/88 98 03/01/25 12:00 03/01/25 12:00 03/01/25 12:00 03/01/25 12:00 03/01/25 12:00 General: Alert, In no apparent distress, Oriented x3 Laboratory Data at Discharge: WBC 5.80 thou/uL (4.3-10.9) 03/01/25 05:56 Hgb 14.8 g/dL (13.6-17.9) 03/01/25 05:56 Hct 43.7 % (39.6-49.0) 03/01/25 05:56 Plt Count 292 thou/uL (152-406) 03/01/25 05:56 PT 17.1 SECONDS (10-13.0) H 02/28/25 07:25 INR 1.53 02/28/25 07:25 APTT Cancelled 02/28/25 18:15 Sodium 137 mEq/L (136-145) 03/01/25 05:56 Potassium 3.5 mEq/L (3.5-5.1) 03/01/25 05:56 BUN 14 mg/dL (7-18) 03/01/25 05:56 Creatinine 0.74 mg/dL (0.70-1.30) 03/01/25 05:56 Glucose 111 mg/dL (74-106) H 03/01/25 05:56 Magnesium 2.1 mg/dL (1.6-2.4) 02/27/25 22:48 Total Bilirubin 1.6 mg/dL (0.2-1.0) H 03/01/25 05:56 AST 20 U/L (15-37) 03/01/25 05:56 ALT 21 U/L (16-61) 03/01/25 05:56 Alkaline Phosphatase 52 U/L (45-117) 03/01/25 05:56 Home Medications: Warfarin Sodium 5 mg PO DAILY 01/16/25 bisoproloL fumarate [Zebeta*] 5 mg PO DAILY 01/17/25 Aspirin Chewable [Aspirin Chewable*] 81 mg PO DAILY #30 tab.chew 03/01/25 Atorvastatin Calcium [Lipitor] 40 mg PO BEDTIME #30 tab 03/01/25 Clopidogrel Bisulfate [Plavix*] 75 mg PO DAILY #30 tab 03/01/25 New Medications: Aspirin Chewable [Aspirin Chewable*] 81 mg PO DAILY #30 tab.chew Atorvastatin Calcium [Lipitor] 40 mg PO BEDTIME #30 tab Clopidogrel Bisulfate [Plavix*] 75 mg PO DAILY #30 tab Physician Discharge Instructions: -DC IV and DC home -Follow-up with PCP in 1 to 2 weeks -Follow-up with Cardiology in 1 to 2 weeks -Please call Dr. Powers at [phone] if any questions regarding hospital stay -Please call nursing station at [phone] if any nursing or medication questions -Return to the emergency room if symptoms worsen Diet: AHA Activity: Fall precautions Followup: Paul Sanon, PAC [Primary Care Provider] - 1-2 Weeks Time spent managing pt's care (in minutes): 35
== END 2025-03-01 14:35 | disposition home or self-care (01) | DRG 321 ==
LOC: ER 22:35 → 2ND 02-28 01:43
PROVIDERS: ADMIT Family Medicine; ATTEND Hospitalist
PROC: 027034Z Dilation of Coronary Artery, One Artery with Drug-eluting Intraluminal Device, Percutaneous Approach (ICD-10-PCS; principal; 2025-02-28)
PROC: 4A023N7 Measurement of Cardiac Sampling and Pressure, Left Heart, Percutaneous Approach (ICD-10-PCS; 2025-02-28)
PROC: B2111ZZ Fluoroscopy of Multiple Coronary Arteries using Low Osmolar Contrast (ICD-10-PCS; 2025-02-28)
DX: I48.91 Unspecified atrial fibrillation (principal); I21.4 Non-ST elevation (NSTEMI) myocardial infarction; I10 Essential (primary) hypertension; E78.5 Hyperlipidemia, unspecified; I16.0 Hypertensive urgency; R00.1 Bradycardia, unspecified; Z79.82 Long term (current) use of aspirin; Z79.01 Long term (current) use of anticoagulants; Z79.02 Long term (current) use of antithrombotics/antiplatelets; Z86.73 Personal history of transient ischemic attack (TIA), and cerebral infarction without residual deficits; Z79.899 Other long term (current) drug therapy
CPT/HCPCS: 36415; 71045; 76937; 80048; 80053; 83735; 83880; 84484; 85025; 85049; 85347; 85379; 85610; 85730; 93005; 93306; 93454; 94760; 96365; 96366; 99152; 99153; 99285; C1725; C1893; C9600; J0360; J0461; J1644; J2003; J2250; J2371; J3010; Q9967